=== PATIENT | male | born 1970 | race American Indian/Alaskan Native ===

== ENCOUNTER 2016-10-19 16:02 | Emergency (ER) | payer SELFPAY ==
[2016-10-19] MEDS ORDERED: TRIPLE ANTIBIOTIC TP ONE (17:30)
[2016-10-19] MEDS ORDERED: NACL 0.9% IR ONE (17:30)
[2016-10-19] MEDS ORDERED: BOOSTRIX IM ONE (17:30)
[2016-10-19] MEDS ORDERED: MOTRIN PO ONE (17:30)
--- NOTE | 2016-10-19 18:01 | Emergency Department Report ---
HPI - General Chief Complaint: Wound/Laceration Time Seen by Provider: 10/19/16 17:21 - HPI HPI: 46-year-old male presents today with a laceration to his left thumb. Patient states that he sliced a car Which 3 days ago. Describes pain as 7 out of 10 constant, stabbing pain. His tetanus status is unknown. Denies numbness, weakness, paresthesias. Tried Tylenol with temporary relief. Denies fever, chills, nausea, vomiting, chest pain, shortness of breath, abdominal pain. Positive for history of hypertension and is currently on HCTZ. Patient states that he did not take his blood pressure medication this morning. Denies headache, visual changes, dizziness, confusion, chest pain, palpitations, shortness of breath. ED Past Medical Hx - Past Medical History Hx Hypertension: Yes Hx Psychiatric Treatment: Yes (PTSD) Hx COPD: Yes - Surgical History Past Surgical History?: No - Social History Smoking Status: Current Every Day Smoker Substance Use Type: Alcohol - Medications Home Medications: Home Medications Medication Instructions Recorded Confirmed Last Taken Type Cephalexin [Keflex] 500 mg PO QID #20 cap 10/19/16 Unknown Rx Ibuprofen [Motrin 600 MG tab] 600 mg PO Q8H PRN #20 tablet 10/19/16 Unknown Rx ED Review of Systems ROS: Stated complaint: THUMB LACERATION/BLEEDING Other details as noted in HPI Constitutional: denies: chills, fever, malaise Eyes: denies: eye pain ENT: denies: ear pain, throat pain, congestion Respiratory: denies: cough, shortness of breath, wheezing Cardiovascular: denies: chest pain, palpitations Endocrine: no symptoms reported Gastrointestinal: denies: abdominal pain, nausea, vomiting Neurological: denies: headache, weakness, numbness, paresthesias Physical Exam - Physical Exam Vital Signs: Vital Signs 10/19/16 16:16 Temperature 98.4 F Pulse Rate 90 Respiratory 18 Rate Blood Pressure 170/109 O2 Sat by Pulse 100 Oximetry Physical Exam: GENERAL: The patient is well-developed and well-nourished. Patient is in NAD. HEAD: Normocephalic. Atraumatic. CHEST/LUNGS: Clear to auscultation throughout. HEART/CARDIOVASCULAR: Regular rate and rhythm. No murmurs, rubs or gallops. ABDOMEN: Abdomen is soft, nontender. Bowel sounds normoactive. No guarding or rebound tenderness. LEFT HAND: Full wrist and digit range of motion. 0.75 cm, linear, superficial laceration noted over the radial aspect of left thumb. Normal sensation. 2 point discrimination intact. Peripheral pulses intact. Capillary refill less than 2 seconds. NEURO: Alert and oriented x 3. Normal gait. ED Course Vital Signs 10/19/16 16:16 Temperature 98.4 F Pulse Rate 90 Respiratory 18 Rate Blood Pressure 170/109 O2 Sat by Pulse 100 Oximetry ED Medical Decision Making - Lab Data Vital Signs 10/19/16 10/19/16 16:16 18:13 Temperature 98.4 F Pulse Rate 90 78 Respiratory 18 16 Rate Blood Pressure 170/109 Blood Pressure 173/100 [Left] O2 Sat by Pulse 100 Oximetry Patient has history of hypertension. He states he did not take his medication this morning. Patient is currently on HCTZ and states he will take it once he gets home. - Medical Decision Making 46-year-old male presents today with a superficial laceration to his left thumb. The wound was copiously irrigated, triple antibiotic ointment was applied and wound was stressed. His tetanus status was updated today. Emphasized the importance of compliance with blood pressure medication. Explained to patient that uncontrolled hypertension can lead to stroke, heart attack and even . Patient expressed understanding. Patient is in no acute distress at this time. He will be discharged home and is encouraged to follow up with a primary care provider. He will be sent home on Keflex and ibuprofen and is encouraged to return to the emergency room for any worsening symptoms. Critical care attestation.: If time is entered above; I have spent that time in minutes in the direct care of this critically ill patient, excluding procedure time. ED Disposition Clinical Impression: Laceration of thumb Qualifiers: Encounter type: initial encounter Laterality: left Qualified Code(s): S61.012A - Laceration without foreign body of left thumb without damage to nail, initial encounter Disposition: DISCHARGED TO HOME OR SELFCARE Is pt being admited?: No Does the pt Need Aspirin: No Condition: Stable Instructions: Finger Laceration (ED) Additional Instructions: Follow-up with primary care provider. Return to the emergency department if symptoms worsen. Prescriptions: Cephalexin [Keflex] 500 mg PO QID #20 cap Ibuprofen [Motrin 600 MG tab] 600 mg PO Q8H PRN #20 tablet PRN Reason: Pain Referrals: PAOLO GREENE MD [Primary Care Provider] - 3-5 Days [facility] [Outside] - 3-5 Days Forms: Work/School Release Form(ED) Time of Disposition: 18:15
[2016-10-19 18:14] VITALS: BP 173/100
== END 2016-10-19 18:22 | disposition home or self-care (01) ==
LOC: ED 16:02
DX: S61.012A Laceration without foreign body of left thumb without damage to nail, initial encounter (principal); I10 Essential (primary) hypertension; F43.10 Post-traumatic stress disorder, unspecified; J44.9 Chronic obstructive pulmonary disease, unspecified; F17.200 Nicotine dependence, unspecified, uncomplicated; W45.8XXA Other foreign body or object entering through skin, initial encounter; Y93.89 Activity, other specified; Y99.9 Unspecified external cause status; Y92.89 Other specified places as the place of occurrence of the external cause
CPT/HCPCS: 90471; 90715; A6250

== ENCOUNTER 2019-02-11 14:37 | Emergency (ER) | payer OTHER ==
[2019-02-11 14:47] VITALS: BP 160/96
[2019-02-11] MEDS ORDERED: BENADRYL PO ONE (14:50)
[2019-02-11] MEDS ORDERED: DECADRON IM ONE (14:50)
[2019-02-11] MEDS ORDERED: PEPCID PO ONE (14:50)
--- NOTE | 2019-02-11 14:50 | Event Note ---
ED Screening Note ED Screening Note: pt presents with uppper lip swelling that began three days states worsened this morning denies any new food, new meds, new soaps, new detergents no allergies that he is aware of did not take anything to relieve sx PMHx HTN and seasonal allergies did not take hctz or zyrtec today This initial assessment/diagnostic orders/clinical plan/treatment(s) is/are subject to change based on patients health status, clinical progression and re- assessment by fellow clinical providers in the ED. Further treatment and workup at subsequent clinical providers discretion. Patient/guardian urged not to elope from the ED as their condition may be serious if not clinically assessed and managed. Initial orders include: meds, eval in [facility]
[2019-02-11] MEDS ORDERED: CLEOCIN PO ONE (16:49)
--- NOTE | 2019-02-11 17:20 | Emergency Department Report ---
ED General Adult HPI - General Chief complaint: Medical Clearance Stated complaint: LIP/FACE SWOLLEN Time Seen by Provider: 02/11/19 14:47 Source: patient Mode of arrival: Ambulatory Limitations: No Limitations - History of Present Illness Initial comments: Patient is a 48-year-old [place] male who is presenting with right upper lip swelling for the last 2 days. Patient states he has not had any problems with this tooth, he also has not taken any new medications or foods. He notes that the swelling is extending from the right nostril into the lip. Patient states there is some mild discomfort as 6 out of 10 in severity as an achy tight feeling. There is some pain with palpation. Patient denies any itching sore throat difficulty swallowing shortness of breath this time. - Related Data Previous Rx's Medication Instructions Recorded Last Taken Type Ibuprofen [Motrin 600 MG tab] 600 mg PO Q8H PRN #20 tablet 10/19/16 Unknown Rx cephALEXin [Keflex] 500 mg PO QID #20 cap 10/19/16 Unknown Rx Clindamycin [Clindamycin CAP] 300 mg PO Q8H #21 cap 02/11/19 Unknown Rx Ibuprofen [Motrin 800 MG tab] 800 mg PO Q8HR PRN #10 tablet 02/11/19 Unknown Rx traMADol [Ultram] 50 mg PO Q6HR PRN #12 tablet 02/11/19 Unknown Rx Allergies Allergy/AdvReac Type Severity Reaction Status Date / Time No Known Allergies Allergy Verified 02/11/19 14:38 ED Review of Systems ROS: Stated complaint: LIP/FACE SWOLLEN Other details as noted in HPI Comment: All other systems reviewed and negative ED Past Medical Hx - Past Medical History Hx Hypertension: Yes Hx Psychiatric Treatment: Yes (PTSD) Hx COPD: Yes - Social History Smoking Status: Current Every Day Smoker Substance Use Type: Alcohol, Prescribed - Medications Home Medications: Home Medications Medication Instructions Recorded Confirmed Last Taken Type Ibuprofen [Motrin 600 MG tab] 600 mg PO Q8H PRN #20 tablet 10/19/16 Unknown Rx cephALEXin [Keflex] 500 mg PO QID #20 cap 10/19/16 Unknown Rx Clindamycin [Clindamycin CAP] 300 mg PO Q8H #21 cap 02/11/19 Unknown Rx Ibuprofen [Motrin 800 MG tab] 800 mg PO Q8HR PRN #10 tablet 02/11/19 Unknown Rx traMADol [Ultram] 50 mg PO Q6HR PRN #12 tablet 02/11/19 Unknown Rx ED Physical Exam - General Limitations: No Limitations General appearance: alert, in no apparent distress - Head Head exam: Present: atraumatic, normocephalic - Expanded Head Exam Expanded 1 - There is swelling and erythema to the right upper lip extending from the lip to the entrance of the right nostril. There is some mild edema present as well extending to the left-sided upper lip. The area of maximum swelling and tenderness does have some erythema of the skin and induration - Eye Eye exam: Present: normal appearance, PERRL, EOMI - ENT ENT exam: Present: mucous membranes moist - Expanded ENT Exam Expanded Mouth exam: Present: tongue normal. Absent: muffled voice, tongue elevation Teeth exam: Present: normal inspection - Neck Neck exam: Present: normal inspection - Respiratory Respiratory exam: Present: normal lung sounds bilaterally. Absent: respiratory distress - Cardiovascular Cardiovascular Exam: Present: regular rate, normal rhythm. Absent: systolic murmur, diastolic murmur, rubs, gallop - GI/Abdominal GI/Abdominal exam: Present: soft, normal bowel sounds - Rectal Rectal exam: Present: deferred - Extremities Exam Extremities exam: Present: normal inspection - Back Exam Back exam: Present: normal inspection - Neurological Exam Neurological exam: Present: alert, oriented X3 - Psychiatric Psychiatric exam: Present: normal affect, normal mood - Skin Skin exam: Present: warm, dry, intact, normal color. Absent: rash ED Course Vital Signs 02/11/19 14:44 Temperature 98.5 F Pulse Rate 97 H Respiratory 18 Rate Blood Pressure 160/96 O2 Sat by Pulse 97 Oximetry ED Medical Decision Making - Medical Decision Making Patient was given meds to combat a allergic reaction from triage however his symptoms more in line with folliculitis of his mustache with some localized cellulitis and edema. The patient be started on antibiotics and medications for symptomatic relief and will be discharged home. Critical care attestation.: If time is entered above; I have spent that time in minutes in the direct care of this critically ill patient, excluding procedure time. ED Disposition Clinical Impression: Cellulitis, lip Disposition: DC-01 TO HOME OR SELFCARE Is pt being admited?: No Does the pt Need Aspirin: No Condition: Stable Instructions: Cellulitis (ED) Referrals: NORRIS IRVIN MD [Referring] - 3-5 Days Time of Disposition: 17:20
== END 2019-02-11 17:36 | disposition home or self-care (01) ==
LOC: ED 14:37
DX: K13.0 Diseases of lips (principal); J44.9 Chronic obstructive pulmonary disease, unspecified; F43.10 Post-traumatic stress disorder, unspecified; I10 Essential (primary) hypertension; F17.200 Nicotine dependence, unspecified, uncomplicated
CPT/HCPCS: 96372; 99282; J1100

== ENCOUNTER 2020-03-25 17:37 | Observation (INO) | payer OTHER ==
[2020-03-25] MEDS ORDERED: ASPIRIN 325 MG TAB PO ONE (18:02)
[2020-03-25 18:43] LABS: Basophils % (Auto) 0.6 % (0.0-1.8); Eosinophils # (Auto) 0.1 K/mm3 (0.0-0.4); Eosinophils % (Auto) 1.2 % (0.0-4.3); Hematocrit 44.3 % (35.5-45.6); Hemoglobin 15.3 gm/dl (11.8-15.2); Lymphocytes # (Auto) 2.2 K/mm3 (1.2-5.4); Lymphocytes % (Auto) 30.7 % (13.4-35.0); Mean Corpuscular HGB Conc 34 % (32-34); Mean Corpuscular Volume 87 fl (84-94); Monocytes # (Auto) 0.6 K/mm3 (0.0-0.8); Monocytes % (Auto) 8.6 % (0.0-7.3); Platelet Count 270 K/mm3 (140-440); Red Cell Distribution Width 13.7 % (13.2-15.2)
[2020-03-25 19:08] LABS: Alanine Aminotransferase 29 units/L (7-56); Albumin 3.8 g/dL (3.9-5); BUN/Creatinine Ratio 18; Blood Urea Nitrogen 16 mg/dL (9-20); Calcium 8.8 mg/dL (8.4-10.2); Hemolysis Index 15
--- NOTE | 2020-03-25 19:14 | XRay Report ---
CHEST 2 VIEWS INDICATION / CLINICAL INFORMATION: Chest Pain. COMPARISON: None available. FINDINGS: SUPPORT DEVICES: None. HEART / MEDIASTINUM: No significant abnormality. LUNGS / PLEURA: No significant pulmonary or pleural abnormality. .No pneumothorax. ADDITIONAL FINDINGS: No significant additional findings. IMPRESSION: 1. No acute findings. Signer Name: Franck Uribe MD Signed: 03/25/2020 7:09 PM Workstation Name: [id number]
--- NOTE | 2020-03-25 20:45 | Emergency Department Report ---
ED Chest Pain HPI - General Chief Complaint: Chest Pain Stated Complaint: CP Time Seen by Provider: 03/25/20 18:05 Source: patient Mode of arrival: Ambulatory Limitations: No Limitations - History of Present Illness Initial Comments: 49-year-old male presents to ED with complaint of chest pain. Patient states he has had 3 episodes of this chest pain over the last week. Patient reports intermittent tightness in the substernal chest, with associated nausea, vomiting, and diaphoresis. Patient states first episode happened after he had eaten some spicy chicken wings, so decided to change his diet. However, patient states the other episodes have not been related to food or eating. Patient denies any cough, fever, leg pain or swelling. Patient reports tobacco use since age 15. MD Complaint: chest pain -: week(s) (1) Onset: during rest, after eating Pain Location: substernal Pain Radiation: none Severity: moderate Quality: tightness Consistency: intermittent Improves With: nothing Worsens With: nothing, eating re: nausea, vomting, diaphoresis. denies: dyspnea Other Symptoms: denies: cough, fever - Related Data Previous Rx's Medication Instructions Recorded Last Taken Type Ibuprofen [Motrin 600 MG tab] 600 mg PO Q8H PRN #20 tablet 10/19/16 Unknown Rx cephALEXin [Keflex] 500 mg PO QID #20 cap 10/19/16 Unknown Rx Clindamycin [Clindamycin CAP] 300 mg PO Q8H #21 cap 02/11/19 Unknown Rx Ibuprofen [Motrin 800 MG tab] 800 mg PO Q8HR PRN #10 tablet 02/11/19 Unknown Rx traMADoL [Ultram] 50 mg PO Q6HR PRN #12 tablet 02/11/19 Unknown Rx Allergies Allergy/AdvReac Type Severity Reaction Status Date / Time No Known Allergies Allergy Verified 02/11/19 14:38 Heart Score - HEART Score History: Moderately suspicious EKG: Non-specific Age: 45-65 Risk factors: 1-2 risk factors Troponin: < normal limit HEART Score: 4 ED Review of Systems ROS: Stated complaint: CP Other details as noted in HPI Comment: All other systems reviewed and negative Constitutional: denies: chills, fever Respiratory: denies: cough, shortness of breath Cardiovascular: chest pain Gastrointestinal: nausea, vomiting Musculoskeletal: other (Denies any leg pain or swelling) ED Past Medical Hx - Past Medical History Hx Hypertension: Yes Hx Psychiatric Treatment: Yes (PTSD) Hx COPD: Yes - Social History Smoking Status: Current Every Day Smoker Substance Use Type: Alcohol, Prescribed - Medications Home Medications: Home Medications Medication Instructions Recorded Confirmed Last Taken Type Ibuprofen [Motrin 600 MG tab] 600 mg PO Q8H PRN #20 tablet 10/19/16 Unknown Rx cephALEXin [Keflex] 500 mg PO QID #20 cap 10/19/16 Unknown Rx Clindamycin [Clindamycin CAP] 300 mg PO Q8H #21 cap 02/11/19 Unknown Rx Ibuprofen [Motrin 800 MG tab] 800 mg PO Q8HR PRN #10 tablet 02/11/19 Unknown Rx traMADoL [Ultram] 50 mg PO Q6HR PRN #12 tablet 02/11/19 Unknown Rx ED Physical Exam - General Limitations: No Limitations General appearance: alert, in no apparent distress - Head Head exam: Present: atraumatic, normocephalic - Eye Eye exam: Present: normal appearance, EOMI - ENT ENT exam: Present: mucous membranes moist - Neck Neck exam: Present: normal inspection - Respiratory Respiratory exam: Present: normal lung sounds bilaterally. Absent: respiratory distress - Cardiovascular Cardiovascular Exam: Present: regular rate, normal rhythm - GI/Abdominal GI/Abdominal exam: Present: soft. Absent: distended, tenderness - Extremities Exam Extremities exam: Present: normal inspection. Absent: pedal edema, calf tenderness - Neurological Exam Neurological exam: Present: alert, oriented X3 - Psychiatric Psychiatric exam: Present: normal affect, normal mood - Skin Skin exam: Present: warm, dry, intact, normal color ED Course Vital Signs 03/25/20 03/25/20 03/25/20 17:59 20:48 20:53 Temperature 98.5 F 98.2 F Pulse Rate 102 H 80 Respiratory 18 22 Rate Blood Pressure 150/90 160/98 160/98 Blood Pressure 160/98 [Right] O2 Sat by Pulse 93 99 Oximetry 03/25/20 03/25/20 03/25/20 21:01 21:15 21:31 Temperature Pulse Rate 79 102 H 81 Respiratory 17 21 22 Rate Blood Pressure 160/98 160/98 160/98 Blood Pressure [Right] O2 Sat by Pulse 99 99 99 Oximetry 03/25/20 03/25/20 03/25/20 21:45 22:01 22:11 Temperature Pulse Rate 83 81 86 Respiratory 17 22 17 Rate Blood Pressure 160/98 160/98 160/98 Blood Pressure [Right] O2 Sat by Pulse 99 99 99 Oximetry 03/25/20 03/25/20 22:21 22:31 Temperature Pulse Rate 80 79 Respiratory 22 21 Rate Blood Pressure 160/98 160/98 Blood Pressure [Right] O2 Sat by Pulse 99 99 Oximetry - Consultations Consultation #1: 03/25/20 20:56 Repeat EKG sent to Dr Patrick. No STEMI. T wave changes possibly assoc w/ LVH or cardiomyopathy. ED Medical Decision Making - Lab Data Result diagrams: 03/25/20 18:20 03/25/20 18:20 - EKG Data -: EKG Interpreted by In EKG shows normal: sinus rhythm, axis, intervals, QRS complexes Rate: normal - EKG Data Interpretation: nonspecific ST-T wave dixie - Radiology Data Radiology results: report reviewed, image reviewed - Medical Decision Making 49-year-old male with intermittent chest pain over the last 3 weeks associated with vomiting, and diaphoresis. EKG found to be abnormal, sent to estimate clerk on-call, no STEMI. Troponin is negative, chest x- ray unremarkable. Will admit patient to hospitalist, Dr. Bae, for cardiac work-up. - Differential Diagnosis ACS, GERD, pneumonia Critical care attestation.: If time is entered above; I have spent that time in minutes in the direct care of this critically ill patient, excluding procedure time. ED Disposition Clinical Impression: Acute chest pain Disposition: OP ADMIT IP TO THIS HOSP Is pt being admited?: Yes Condition: Stable Time of Disposition: 21:07
[2020-03-25] MEDS ORDERED: ACETAMINOPHEN 325 MG TAB ONE (21:20)
[2020-03-25] MEDS ORDERED: ONDANSETRON 4 MG/2 ML INJ IV PRN (22:07)
[2020-03-25] MEDS ORDERED: ACETAMINOPHEN 325 MG TAB PO PRN (22:07)
[2020-03-25] MEDS ORDERED: MORPHINE 2 MG/1 ML INJ IV PRN (22:07)
[2020-03-25] MEDS ORDERED: hydrALAZINE 20 MG/1 ML INJ IV PRN (22:07)
[2020-03-25] MEDS ORDERED: MAGNESIUM HYDROXIDE (MOM) ORAL LIQD UDC PO PRN (22:07)
[2020-03-25] MEDS ORDERED: NITROGLYCERIN 0.4 MG TAB SUBL SL PRN (22:07)
--- NOTE | 2020-03-25 22:16 | History and Physical Report ---
History of Present Illness Date of examination: 03/25/20 Date of admission: 03/25/20 21:55 Chief complaint: Chest pain History of present illness: 49-year-old male with significant history of hypertension and current daily smoker since age 15 presented to the emergency room today complaining of chest pain which has been ongoing for the past 1 week. Chest pain has been intermittent tightness in the substernal area. He has had associated nausea and vomiting and diaphoresis. He denies any fever or or chills, no headache or dizziness. Chest pain is nonradiating and lasted a few minutes on each occasion. No no relieving or exacerbating factor. Work-up so far in the emergency room including chest x-ray, EKG and troponin has been unremarkable. Past History Past Medical History: hypertension, other (PTSD) Past Surgical History: No surgical history Social history: smoking (Current daily smoker), alcohol abuse (Drinks 3-4 beers daily) Family history: CAD (Grandmother of myocardial infarction) Medications and Allergies Allergies Allergy/AdvReac Type Severity Reaction Status Date / Time No Known Allergies Allergy Verified 02/11/19 14:38 Home Medications Medication Instructions Recorded Confirmed Last Taken Type Ibuprofen [Motrin 600 MG tab] 600 mg PO Q8H PRN #20 tablet 10/19/16 Unknown Rx cephALEXin [Keflex] 500 mg PO QID #20 cap 10/19/16 Unknown Rx Clindamycin [Clindamycin CAP] 300 mg PO Q8H #21 cap 02/11/19 Unknown Rx Ibuprofen [Motrin 800 MG tab] 800 mg PO Q8HR PRN #10 tablet 02/11/19 Unknown Rx traMADoL [Ultram] 50 mg PO Q6HR PRN #12 tablet 02/11/19 Unknown Rx Review of Systems Constitutional: no fever, no chills Ears, nose, mouth and throat: no nasal congestion, no sore throat Cardiovascular: chest pain, shortness of breath, no palpitations Respiratory: cough, no wheezing Gastrointestinal: nausea, vomiting, no abdominal pain, no diarrhea Genitourinary Male: no dysuria, no hematuria, no flank pain Musculoskeletal: no neck pain, no low back pain Integumentary: no rash, no pruritis Neurological: no headaches, no confusion Psychiatric: no anxiety, no depression Exam - Constitutional Vitals: Temp Pulse Resp BP Pulse Ox 98.2 F 80 22 160/98 100 03/25/20 20:53 03/25/20 20:53 03/25/20 20:53 03/25/20 20:53 03/25/20 20:53 General appearance: Present: no acute distress, well-nourished - EENT Eyes: Present: PERRL, EOM intact. Absent: scleral icterus ENT: hearing intact, clear oral mucosa, dentition normal - Neck Neck: Present: supple, normal ROM - Respiratory Respiratory effort: normal Respiratory: bilateral: CTA - Cardiovascular Rhythm: regular Heart Sounds: Present: S1 & S2. Absent: gallop, systolic murmur, diastolic murmur, rub - Extremities Extremities: no ischemia, pulses intact, pulses symmetrical, No edema, Full ROM Peripheral Pulses: within normal limits - Abdominal General gastrointestinal: Present: soft, non-tender, non-distended, normal bowel sounds. Absent: mass - Integumentary Integumentary: Present: clear, warm, dry - Musculoskeletal Musculoskeletal: strength equal bilaterally - Psychiatric Psychiatric: appropriate mood/affect, intact judgment & insight, memory intact, cooperative - Neurologic Neurologic: CNII-XII intact, no focal deficits, moves all extremities HEART Score - HEART Score Troponin: Troponin T < 0.010 ng/mL (0.00-0.029) 03/25/20 21:12 Results - Labs CBC & Chem 7: 03/25/20 18:20 03/25/20 18:20 Labs: Abnormal lab results 03/25/20 03/25/20 Range/Units 18:20 18:20 RBC 5.10 H (3.65-5.03) M/mm3 Hgb 15.3 H (11.8-15.2) gm/dl [place] % (Auto) 8.6 H (0.0-7.3) % Glucose 112 H (75-100) mg/dL Albumin 3.8 L (3.9-5) g/dL Assessment and Plan - Patient Problems (1) Acute chest pain Current Visit: Yes Status: Acute Plan to address problem: Patient admitted and placed on telemetry. We will check serial cardiac enzymes. Patient started on daily aspirin, sublingual nitroglycerin and IV morphine as needed for chest pain. Patient will be scheduled for stress test. (2) Hypertension Current Visit: Yes Status: Acute Plan to address problem: We will resume routine home medications once reconciled. Will monitor blood pressure closely. (3) DVT prophylaxis Current Visit: Yes Status: Acute Plan to address problem: Patient placed on subcutaneous Lovenox. (4) Full code status Current Visit: Yes Status: Acute
[2020-03-25] MEDS ORDERED: ASPIRIN 325 MG TAB ONE (22:18)
[2020-03-26 04:32] LABS: Chol/HDL Ratio 4.01 %
[2020-03-26 05:50] LABS: Basophils % (Auto) 0.6 % (0.0-1.8); Eosinophils # (Auto) 0.1 K/mm3 (0.0-0.4); Eosinophils % (Auto) 1.5 % (0.0-4.3); Hemoglobin 15.1 gm/dl (11.8-15.2); Lymphocytes # (Auto) 2.4 K/mm3 (1.2-5.4); Lymphocytes % (Auto) 35.5 % (13.4-35.0); Monocytes # (Auto) 0.6 K/mm3 (0.0-0.8); Monocytes % (Auto) 9.3 % (0.0-7.3)
[2020-03-26 06:04] LABS: INR 0.88 (0.87-1.13)
[2020-03-26 06:08] LABS: Hematocrit 43.3 % (35.5-45.6); Mean Corpuscular HGB Conc 35 % (32-34); Mean Corpuscular Volume 88 fl (84-94); Platelet Count 265 K/mm3 (140-440); Red Blood Count 4.95 M/mm3 (3.65-5.03); Red Cell Distribution Width 14.1 % (13.2-15.2)
[2020-03-26 06:13] LABS: Blood Urea Nitrogen 13 mg/dL (9-20); Hemolysis Index 9
[2020-03-26 06:26] LABS: BUN/Creatinine Ratio 19
[2020-03-26] MEDS ORDERED: REGADENOSON 0.4 MG/5 ML INJ IV ONE ×2 (07:16→08:03)
--- NOTE | 2020-03-26 09:51 | Consultation ---
History of Present Illness Consult date: 03/26/20 Consult reason: chest pain, other (Abnormal EKG) History of present illness: The patient is a 49-year-old man with a history of hypertension for which he [facility] up [facility], and takes hydrochlorothiazide. He denies any prior cardiac history. He presented to the hospital with intermittent substernal chest pain ongoing for several days, poorly characterized, not clearly exertional. He was evaluated in the emergency room and admitted for rule out protocol. This morning, he was ordered for an exercise thallium stress test by the medical service. Prior to the requested stress test, we reviewed the patient's EKGs. Serial EKGs show deep T wave inversions across the precordium. The patient has no prior ECGs in the hospital records for comparison. He is unaware of previous history of an abnormal ECG. Past History Past Medical History: hypertension, other (PTSD) Past Surgical History: No surgical history Social history: smoking (Current daily smoker), alcohol abuse (Drinks 3-4 beers daily) Family history: CAD (Grandmother of myocardial infarction) Medications and Allergies Allergies Allergy/AdvReac Type Severity Reaction Status Date / Time No Known Allergies Allergy Verified 02/11/19 14:38 Home Medications Medication Instructions Recorded Confirmed Last Taken Type Ibuprofen [Motrin 600 MG tab] 600 mg PO Q8H PRN #20 tablet 10/19/16 03/26/20 Unknown Rx cephALEXin [Keflex] 500 mg PO QID #20 cap 10/19/16 03/26/20 Unknown Rx Clindamycin [Clindamycin CAP] 300 mg PO Q8H #21 cap 02/11/19 03/26/20 Unknown Rx Ibuprofen [Motrin 800 MG tab] 800 mg PO Q8HR PRN #10 tablet 02/11/19 03/26/20 Unknown Rx traMADoL [Ultram] 50 mg PO Q6HR PRN #12 tablet 02/11/19 03/26/20 Unknown Rx Active Meds: Active Medications Acetaminophen (Tylenol) 650 mg PO Q4H PRN PRN Reason: Pain MILD(1-3)/Fever >100.5/FRIAS Aspirin (Ecotrin) 325 mg PO QDAY JESSIE Enoxaparin Sodium (Enoxaparin) 40 mg SUB-Q QDAY@2200 JESSIE Hydralazine HCl (Apresoline) 10 mg IV Q6HR PRN PRN Reason: FOR SBP > target Magnesium Hydroxide (Milk Of Magnesia) 30 ml PO Q4H PRN PRN Reason: Constipation Morphine Sulfate (Morphine) 2 mg IV Q5MIN PRN PRN Reason: Chest Pain unrelieved by NTG Nitroglycerin (Nitrostat) 0.4 mg SL Q5M PRN PRN Reason: Chest Pain Ondansetron HCl (Zofran) 4 mg IV Q8H PRN PRN Reason: Nausea And Vomiting Sodium Chloride (Sodium Chloride Flush Syringe 10 Ml) 10 ml IV BID JESSIE Sodium Chloride (Sodium Chloride Flush Syringe 10 Ml) 10 ml IV PRN PRN PRN Reason: LINE FLUSH Review of Systems Cardiovascular: chest pain, no orthopnea, no palpitations, no rapid/irregular heart beat, no edema, no syncope, no lightheadedness, no shortness of breath Physical Examination Vital Signs Temp Pulse Resp BP Pulse Ox 98.5 F 102 H 18 150/90 93 03/25/20 17:59 03/25/20 17:59 03/25/20 17:59 03/25/20 17:59 03/25/20 17:59 General appearance: no acute distress HEENT: Positive: PERRL Neck: Positive: neck supple Cardiac: Positive: Reg Rate and Rhythm Lungs: Positive: clear to auscultation Neuro: Positive: Grossly Intact Abdomen: Positive: Soft Male genitourinary: Positive: deferred Skin: Positive: Clear Extremities: Absent: edema Results 03/26/20 05:08 03/26/20 05:08 Cardiac Enzymes 03/25/20 Range/Units 18:20 AST 25 (5-40) units/L Coagulation 03/26/20 Range/Units 05:08 PT 12.0 L (12.2-14.9) Sec. INR 0.88 (0.87-1.13) Lipids 03/25/20 Range/Units Unknown Triglycerides 237 H (2-149) mg/dL Cholesterol 213 H (50-199) mg/dL HDL Cholesterol 53 (40-59) mg/dL Cholesterol/HDL Ratio 4.01 % CBC 03/25/20 03/26/20 Range/Units 18:20 05:08 WBC 7.2 6.8 (4.5-11.0) K/mm3 RBC 5.10 H 4.95 (3.65-5.03) M/mm3 Hgb 15.3 H 15.1 (11.8-15.2) gm/dl Hct 44.3 43.3 (35.5-45.6) % Plt Count 270 265 (140-440) K/mm3 Lymph # 2.2 2.4 (1.2-5.4) K/mm3 [place] # 0.6 0.6 (0.0-0.8) K/mm3 Eos # 0.1 0.1 (0.0-0.4) K/mm3 Baso # 0.0 0.0 (0.0-0.1) K/mm3 Comprehensive Metabolic Panel 03/25/20 03/26/20 Range/Units 18:20 05:08 Sodium 138 137 (137-145) mmol/L Potassium 4.1 3.7 (3.6-5.0) mmol/L Chloride 101.0 97.4 L (98-107) mmol/L Carbon Dioxide 22 25 (22-30) mmol/L BUN 16 13 (9-20) mg/dL Creatinine 0.9 0.7 L (0.8-1.3) mg/dL Glucose 112 H 96 (75-100) mg/dL Calcium 8.8 9.0 (8.4-10.2) mg/dL AST 25 (5-40) units/L ALT 29 (7-56) units/L Alkaline Phosphatase 98 (35-129) units/L Total Protein 6.5 (6.3-8.2) g/dL Albumin 3.8 L (3.9-5) g/dL EKG interpretations - Telemetry EKG Rhythm: Sinus Rhythm (With deep anterior lateral T wave inversions) Assessment and Plan - Patient Problems (1) Abnormal ECG Current Visit: Yes Status: Acute Plan to address problem: The patient presented with chest pain accompanied by deep anterior wall T wave inversions, of uncertain etiology. EKG changes may be due to LVH from chronic hypertension, but patient has no old ECGs for comparison. We will request the patient's old ECGs from the [facility] for comparison, and if this changes are new the differential diagnosis will include acute anterior wall ischemia. In that scenario, patient is not a candidate for stress testing and will instead be recommended for diagnostic coronary angiography. (2) Chest pain Current Visit: Yes Status: Acute Plan to address problem: The patient presented with chest pain accompanied by deep anterior wall T wave inversions, of uncertain etiology. EKG changes may be due to LVH from chronic hypertension, but patient has no old ECGs for comparison. [facility], and if this changes are new the differential diagnosis will include acute anterior wall ischemia. In that scenario, patient is not a candidate for stress testing and will instead be recommended for diagnostic coronary angiography. (3) Uncontrolled hypertension Current Visit: Yes Status: Acute Plan to address problem: Patient's blood pressure on presentation was 160 systolic. We will add losartan 50 mg to blood pressure management.
[2020-03-26] MEDS ORDERED: hydroCHLOROthiazide 25 MG TAB PO SCH (10:00)
[2020-03-26] MEDS ORDERED: ASPIRIN EC 325 MG TAB PO SCH (10:00)
[2020-03-26] MEDS ORDERED: LOSARTAN 50 MG TAB PO SCH (10:00)
[2020-03-26] MEDS ORDERED: SODIUM CHLORIDE 0.9% 500 ML 500 ML IV SCH (10:00)
[2020-03-26] MEDS ORDERED: SODIUM CHLORIDE 0.9% 500 ML 500 ML ONE (10:57)
[2020-03-26] MEDS ORDERED: LIDOCAINE (2%) 20 MG/1 ML VIAL 20 ML MDV INFILTRATI ONE (12:05)
[2020-03-26] MEDS ORDERED: HEPARIN/NS 5000 UNIT/500ML 1,000 ML IR ONE (12:05)
[2020-03-26] MEDS: MIDAZOLAM 2 MG/2 ML INJ ONE ×2 (12:25→12:28)
[2020-03-26] MEDS: VERAPAMIL 5 MG/2 ML INJ ONE ×2 (12:25→12:33)
[2020-03-26] MEDS: HEPARIN 10,000 UNITS/10 ML VIAL ONE ×2 (12:25→12:33)
[2020-03-26] MEDS: fentaNYL 100 MCG/2 ML INJ ONE ×2 (12:25→12:28)
[2020-03-26] MEDS: NITROGLYCERIN SYRINGE 3 ML ONE ×2 (12:26→12:33)
--- NOTE | 2020-03-26 13:39 | Event Note ---
Date: 03/26/20 Cardiac catheterization was completed via the right radial approach. No complications. We found a heavily calcified proximal LAD, with a greater than 99% stenosis of the mid LAD, consistent with a deep anterolateral T wave inversions found on ECG. There was also moderately severe disease of the mid to distal circumflex and proximal to mid right coronary arteries. Left ventricular ejection fraction was approximately 40%. Based on his anatomy, patient is recommended for multivessel revascularization with coronary artery bypass.
[2020-03-26] MEDS ORDERED: SODIUM CHLORIDE 0.9% 1000 ML 1,000 ML IV SCH (13:45)
[2020-03-26] MEDS ORDERED: METOPROLOL TARTRATE 25 MG TAB PO SCH (14:00)
[2020-03-26] MEDS ORDERED: HEPARIN 10,000 UNITS/10 ML VIAL IV ONE (14:00)
[2020-03-26] MEDS ORDERED: NITROGLYCERIN 2% OINT 1 GM TP SCH (14:00)
--- NOTE | 2020-03-26 14:23 | Cardiac Catherization Report ---
CARDIAC CATHETERIZATION REPORT REASON FOR PROCEDURE: Chest pain and abnormal ECG. PROCEDURES: 1. Left heart catheterization. 2. Selective left and right coronary angiography. 3. Left ventricular angiography. SEDATION TIME START: 12:28. SEDATION TIME END: 12:48. DESCRIPTION OF PROCEDURE: The patient was prepped and draped in a sterile fashion after informed consent. The right radial cath site was prepped and draped in a sterile fashion after a negative Dominik's test. The right radial artery was entered using Seldinger technique followed by placement of a 6-Mongolian hydrophilic sheath. Routine radial cocktail was administered via the sheath. Selective left and right coronary angiography was performed using #3.5 left [place] and #4 right [place]. The pigtail catheter was used for left ventricular angiography. The catheters were then removed, sheath removed, and hemostasis achieved using a TR band. The patient was returned to the postprocedure unit in stable condition. There were no complications. FINDINGS: HEMODYNAMICS: Left ventricular end diastolic pressure was 13, following coronary angiography ____. Ascending aortic pressure of 139/88. There was no significant pressure gradient on pullback across the aortic valve. CORONARY ANGIOGRAPHY: There was severe calcification of the left coronary arteries including the distal left main, proximal to mid LAD and proximal to mid circumflex. The left main contained mild irregularities. The left anterior descending artery contained a long segment of severe disease in its proximal segment associated with heavy calcification. There was a long 80% stenosis, which ____ in a greater than 99% stenosis of the mid LAD. The circumflex artery also contained calcification in its proximal to mid segment, followed by a long irregular 70-80% stenosis of its mid to distal segment. The right coronary artery was a small caliber, but dominant vessel. This vessel was also heavily calcified and contained a long, 70-80% stenosis of its proximal to mid segment. The left ventricular systolic function was mildly to moderately impaired with ejection fraction approximately 40%. CONCLUSION: 1. Severe 3-vessel disease including a subtotal occlusion of the LAD in its mid segment. The LAD is heavily calcified and would not be an optimal target for percutaneous intervention in the absence of rotational atherectomy. 2. Multivessel coronary artery disease and ischemic left ventricular dysfunction. RECOMMENDATION: Coronary artery bypass surgery will be the optimal revascularization strategy. JOB# [id number] CA/NTS
--- NOTE | 2020-03-26 15:06 | Discharge Summary ---
Providers - Providers Date of Admission: 03/25/20 21:55 Date of discharge: 03/26/20 Attending physician: RIMA MODI 03/25/20 Consult to Cardiac Rehabilitation [CONS] Routine Reason For Exam: Phase I 03/25/20 22:08 Consult to Cardiology [CONS] Routine Consulting Provider: SAM BRANTLEY Reason For Exam: CHEST PAIN 03/26/20 13:33 Consult to Cardiac Rehabilitation [CONS] Routine Reason For Exam: Cardiac Rehab Evaluation Primary care physician: REVENUE MANAGER Hospitalization Reason for admission: chest pain Condition: Stable Hospital course: This is a 49-year-old male presented to the hospital with complaints of chest pain. Patient was admitted to the hospital, cardiology was consulted, was monitored with the serial EKG and troponin. Serial EKGs show deep T wave inversions across the precordium. Cardiology proceeded with the left heart catheterization. LHC found a heavily calcified proximal LAD, with a greater than 99% stenosis of the mid LAD, consistent with a deep anterolateral T wave inversions found on ECG. There was also moderately severe disease of the mid to distal circumflex and proximal to mid right coronary arteries. Left ventricular ejection fraction was approximately 40%. Based on his anatomy, patient is recommended for multivessel revascularization with coronary artery bypass [facility]. Patient was then transferred to [place] for higher level of care in stable condition. Discharge diagnosis: Acute chest pain-angina pectoris, due to coronary artery disease -Patient will be transferred to [place] for higher level of care Hyperlipidemia, continue statin Uncontrolled hypertension, stable on d/c Acute new onset systolic CHF, appears compensated PTSD, outpt f/u Disposition: DC/TX-[facility] Time spent for discharge: 34 minutes Core Measure Documentation - Palliative Care Palliative Care/ Comfort Measures: Not Applicable - Core Measures Any of the following diagnoses?: history only Exam - Physical Exam Narrative exam: GENERAL: well-developed and well-nourished male lying on bed appeared to be in no discomfort. HEENT: Normocephalic. Atraumatic. No conjunctival congestion or icterus. Patient has moist mucous membranes. NECK: Supple. Trachea midline. CHEST/LUNGS: Clear to auscultated bilaterally, breathing nonlabored. No wheezes crackles or rhonchi. HEART/CARDIOVASCULAR: Regular in rate and rhythm. S1 and S2 positive. ABDOMEN: Abdomen is soft, nontender. Patient has normal bowel sounds. SKIN: There is no rash. Warm and dry. NEURO: No focal motor deficit. Follows command. MUSCULOSKELETAL: No joint effusion or tenderness. EXTRIMITY: No edema, no cyanosis or clubbing. PSYCH: Cooperative. - Constitutional Vitals: Temp Pulse Resp BP Pulse Ox 96.9 F L 70 16 158/98 94 03/26/20 03:58 03/26/20 10:00 03/26/20 03:58 03/26/20 03:58 03/26/20 03:58 Plan Activity: other (Bedrest) Weight Bearing Status: Non-Weight Bearing Diet: low fat, low salt Follow up with: PRIMARY CARE, [Primary Care Provider] - 3-5 Days
[2020-03-26] MEDS ORDERED: HEPARIN/ 0.45% NACL DRIP 25,000 UNIT/500 ML BAG IV SCH (15:35)
[2020-03-26 16:26] LABS: INR 0.91 (0.87-1.13)
[2020-03-26 16:27] LABS: Partial Thromboplastin Time 27.4 Sec. (24.2-36.6)
[2020-03-26 16:52] VITALS: BP 125/77
[2020-03-26] MEDS ORDERED: ENOXAPARIN 40 MG/0.4 ML INJ SUB-Q SCH (22:00)
== END 2020-03-26 18:58 | disposition other institution (70) ==
LOC: ED 17:37 → 4A 21:55
PROVIDERS: ADMIT Internal Medicine; ATTEND Internal Medicine
DX: R07.89 Other chest pain (principal); R94.31 Abnormal electrocardiogram [ECG] [EKG]; R11.2 Nausea with vomiting, unspecified; I25.119 Atherosclerotic heart disease of native coronary artery with unspecified angina pectoris; I11.0 Hypertensive heart disease with heart failure; I50.21 Acute systolic (congestive) heart failure; F43.10 Post-traumatic stress disorder, unspecified; E78.5 Hyperlipidemia, unspecified; J44.9 Chronic obstructive pulmonary disease, unspecified; F17.200 Nicotine dependence, unspecified, uncomplicated; Z79.899 Other long term (current) drug therapy
CPT/HCPCS: 36415; 71046; 80048; 80053; 80061; 84484; 85014; 85018; 85025; 85049; 85610; 85730; 93005; 93306; 93458; 96360; 96361; 99285; C1894; G0378; J1644; J2250; J3010; J7040; J2785; Q9967

== ENCOUNTER 2021-08-12 01:45 | Emergency (ER) | payer OTHER ==
[2021-08-12] MEDS ORDERED: hydrALAZINE 20 MG/1 ML INJ IV ONE ×2 (02:22→04:52)
--- NOTE | 2021-08-12 02:26 | Emergency Department Report ---
ED ENT HPI - General Chief complaint: Nosebleed Stated complaint: EPISTAXIS Time Seen by Provider: 08/12/21 02:13 Source: patient Mode of arrival: Ambulatory Limitations: No Limitations - History of Present Illness Initial comments: Patient is 50 years old male with history of hypertension. Patient presented to the ER complaining of epistaxis that started just prior to coming to the ER. Patient is bleeding from both nose however the one on the left side is more bright red blood with clots. Patient denied any recent injury. He also denied any fever or chills. Patient found to have a blood pressure of 183/113. Patient denied any headache, focal weakness numbness or tingling sensation. No chest pain or shortness of breath. MD complaint: epistaxis -: Sudden Location: nose Severity: moderate - Related Data Home Medications Medication Instructions Recorded Confirmed Last Taken Aspirin EC [Ecotrin] 81 mg PO QDAY 08/01/20 07/28/20 Cetirizine HCl [Cetirizine 5mg tab] 10 mg PO DAILY PRN 08/01/20 08/01/20 07/27/20 Cholecalciferol (Vitamin D3) 25 mcg PO DAILY 08/01/20 08/01/20 07/28/20 [Vitamin D3] Losartan [Cozaar] 5 mg PO QDAY 08/01/20 08/01/20 07/28/20 Metoprolol [Lopressor TAB] 50 mg PO BID 08/01/20 08/01/20 07/28/20 Previous Rx's Medication Instructions Recorded Last Taken Type AtorvaSTATin [Lipitor] 40 mg PO QHS tablet 03/26/20 07/27/20 Rx Allergies Allergy/AdvReac Type Severity Reaction Status Date / Time No Known Allergies Allergy Verified 02/11/19 14:38 ED Dental HPI - General Chief complaint: Nosebleed Stated complaint: EPISTAXIS Time Seen by Provider: 08/12/21 02:13 Source: patient Mode of arrival: Ambulatory Limitations: No Limitations - Related Data Home Medications Medication Instructions Recorded Confirmed Last Taken Aspirin EC [Ecotrin] 81 mg PO QDAY 08/01/20 07/28/20 Cetirizine HCl [Cetirizine 5mg tab] 10 mg PO DAILY PRN 08/01/20 08/01/20 07/27/20 Cholecalciferol (Vitamin D3) 25 mcg PO DAILY 08/01/20 08/01/2007/28/20 [Vitamin D3] Losartan [Cozaar] 5 mg PO QDAY 08/01/20 08/01/20 07/28/20 Metoprolol [Lopressor TAB] 50 mg PO BID 08/01/20 08/01/20 07/28/20 Previous Rx's Medication Instructions Recorded Last Taken Type AtorvaSTATin [Lipitor] 40 mg PO QHS tablet 03/26/20 07/27/20 Rx Allergies Allergy/AdvReac Type Severity Reaction Status Date / Time No Known Allergies Allergy Verified 02/11/19 14:38 ED Review of Systems ROS: Stated complaint: EPISTAXIS Other details as noted in HPI Comment: All other systems reviewed and negative Constitutional: denies: chills, fever ENT: epistaxis Respiratory: denies: cough, shortness of breath, SOB with exertion, SOB at rest Cardiovascular: denies: chest pain, palpitations Gastrointestinal: denies: abdominal pain, nausea ED Past Medical Hx - Past Medical History Hx Hypertension: Yes Hx Congestive Heart Failure: No Hx Diabetes: No Hx Psychiatric Treatment: Yes (PTSD) Hx Asthma: No Hx COPD: Yes - Surgical History Past Surgical History?: No - Social History Smoking Status: Current Every Day Smoker - Medications Home Medications: Home Medications Medication Instructions Recorded Confirmed Last Taken Type AtorvaSTATin [Lipitor] 40 mg PO QHS tablet 03/26/20 08/01/20 07/27/20 Rx Aspirin EC [Ecotrin] 81 mg PO QDAY 08/01/20 07/28/20 History Cetirizine HCl [Cetirizine 5mg tab] 10 mg PO DAILY PRN 08/01/20 08/01/20 07/27/20 History Cholecalciferol (Vitamin D3) 25 mcg PO DAILY 08/01/20 08/01/20 07/28/20 History [Vitamin D3] Losartan [Cozaar] 5 mg PO QDAY 08/01/20 08/01/20 07/28/20 History Metoprolol [Lopressor TAB] 50 mg PO BID 08/01/20 08/01/20 07/28/20 History ED Physical Exam - General Limitations: No Limitations General appearance: alert, anxious - Head Head exam: Present: atraumatic, normocephalic, normal inspection - ENT ENT exam: Present: other (Epistaxis with bright red blood active bleeding on bot h nostrils.) - Respiratory Respiratory exam: Present: normal lung sounds bilaterally - Cardiovascular Cardiovascular Exam: Present: regular rate, normal rhythm, normal heart sounds - GI/Abdominal GI/Abdominal exam: Present: soft. Absent: distended, tenderness, guarding, rebound, rigid - Extremities Exam Extremities exam: Present: normal inspection, full ROM, normal capillary refill. Absent: tenderness - Back Exam Back exam: Present: normal inspection, full ROM. Absent: CVA tenderness (R), CVA tenderness (L) - Neurological Exam Neurological exam: Present: alert, oriented X3, CN II-XII intact - Psychiatric Psychiatric exam: Present: normal mood - Skin Skin exam: Present: warm, intact, normal color ED Course Vital Signs 08/12/21 08/12/21 08/12/21 02:01 02:30 02:36 Temperature 97.6 F Pulse Rate 87 91 H 91 H Respiratory 16 16 Rate Blood Pressure 201/151 Blood Pressure 189/113 201/151 [Left] O2 Sat by Pulse 100 100 Oximetry 08/12/21 08/12/21 08/12/21 02:45 03:15 04:00 Temperature Pulse Rate 89 93 H 83 Respiratory 14 13 20 Rate Blood Pressure Blood Pressure 183/102 170/102 180/95 [Left] O2 Sat by Pulse 99 98 98 Oximetry 08/12/21 08/12/21 08/12/21 04:30 04:58 05:15 Temperature Pulse Rate 86 85 92 H Respiratory 13 12 Rate Blood Pressure 180/96 Blood Pressure 161/91 160/86 [Left] O2 Sat by Pulse 99 98 Oximetry ED Medical Decision Making - Lab Data Result diagrams: 08/12/21 02:51 08/12/21 02:51 - Medical Decision Making Patient is 50 years old male with history of hypertension. Patient presented to the ER complaining of epistaxis that started just prior to coming to the ER. Patient is bleeding from both nose however the one on the left side is more bright red blood with clots. Patient denied any recent injury. He also denied any fever or chills. Patient found to have a blood pressure of 183/113. Pat ient denied any headache, focal weakness numbness or tingling sensation. No chest pain or shortness of breath. Rhinocort applied to the left and right nostril. After 1 hour the right nostril Rhinocort removed and there is no bleeding. Left Rhinocort kept in place. Blood pressure improved with 20 mg of IV hydralazine. Patient advised to follow-up with his primary doctor in the next 2 to 3 days or to return to the ER for the removal of the nasal packing. Critical care attestation.: If time is entered above; I have spent that time in minutes in the direct care of this critically ill patient, excluding procedure time. ED Disposition Clinical Impression: Acute anterior epistaxis, Malignant hypertension Disposition: 01 HOME / SELF CARE / HOMELESS Is pt being admited?: No Condition: Stable Instructions: Hypertension (ED), Hypertension, Adult, Nosebleed, Adult Referrals: [facility] [Primary Care Provider] - 3-5 Days
[2021-08-12 03:10] LABS: Basophils # (Auto) 0.1 K/mm3 (0.0-0.1); Basophils % (Auto) 0.8 % (0.0-1.8); Eosinophils # (Auto) 0.1 K/mm3 (0.0-0.4); Eosinophils % (Auto) 0.9 % (0.0-4.3); Hematocrit 41.2 % (35.5-45.6); Hemoglobin 13.9 gm/dl (11.8-15.2); Lymphocytes # (Auto) 3.2 K/mm3 (1.2-5.4); Lymphocytes % (Auto) 33.6 % (13.4-35.0); Mean Corpuscular HGB Conc 34 % (32-34); Mean Corpuscular Volume 91 fl (84-94); Monocytes # (Auto) 0.9 K/mm3 (0.0-0.8); Monocytes % (Auto) 9.9 % (0.0-7.3); Platelet Count 307 K/mm3 (140-440); Red Blood Count 4.52 M/mm3 (3.65-5.03); Red Cell Distribution Width 14.6 % (13.2-15.2)
[2021-08-12 03:23] LABS: INR 0.87 (0.87-1.13)
[2021-08-12 03:24] LABS: Partial Thromboplastin Time 27.6 Sec. (24.2-36.6)
[2021-08-12] MEDS ORDERED: MORPHINE 4 MG/1 ML INJ IV ONE (03:27)
[2021-08-12] MEDS ORDERED: ONDANSETRON 4 MG/2 ML INJ IV ONE (03:27)
[2021-08-12] MEDS ORDERED: MORPHINE 4 MG/1 ML INJ ONE (03:28)
[2021-08-12 03:31] LABS: Alanine Aminotransferase 25 units/L (7-56); Albumin 3.4 g/dL (3.9-5); Blood Urea Nitrogen 12 mg/dL (9-20); Calcium 9.1 mg/dL (8.4-10.2); Hemolysis Index 2
[2021-08-12 03:47] LABS: BUN/Creatinine Ratio 20
[2021-08-12 06:14] VITALS: BP 154/92
== END 2021-08-12 06:52 | disposition home or self-care (01) ==
LOC: ED 01:45
DX: R04.0 Epistaxis (principal); I10 Essential (primary) hypertension; J44.9 Chronic obstructive pulmonary disease, unspecified; F17.200 Nicotine dependence, unspecified, uncomplicated; Z79.82 Long term (current) use of aspirin; Z79.899 Other long term (current) drug therapy
CPT/HCPCS: 30901; 36415; 80053; 85025; 85610; 85730; 96374; 96375; 96376; 99283; J0360; J2270; J2405

== ENCOUNTER 2021-08-12 08:58 | Emergency (ER) | payer OTHER ==
--- NOTE | 2021-08-12 09:13 | Emergency Department Report ---
ED ENT HPI - General Chief complaint: Nosebleed Stated complaint: NOSE BLEED Time Seen by Provider: 08/12/21 09:06 Source: patient Mode of arrival: Ambulatory Limitations: No Limitations - History of Present Illness Initial comments: 50-year-old -[place] male with a past medical history of hypertension presents to the ER today with complaints of nosebleeds. Patient was actually discharged this morning from the ER after being seen for similar. According to the providers note, patient was weaned from both both nostrils, he had a Rhino Rocket placed in both nostrils but after an hour, the right one was removed, and the left was kept in place. Patient blood pressure was high at the time, 183/118 and during his visit he did receive 20 mg IV hydralazine after which his blood pressure did improve. Patient was instructed to follow-up with PCP in 2 to 3 days or return to the ER 2 to 3 days to have the packing removed. Patient reports that the bleeding did stop when he initially left the ER, but when he got home he started to bleed again from his right nostril. He does admit that he did blow his nose when he got home. He states that bleeding is bright red. He reports no additional symptoms at this time. He states that his never had nosebleed before in the past. He is on baby aspirin 81 mg a day, no other anticoagulants or antiplatelet therapy. He denies any pain disorders. He does admit that he drinks alcohol almost every day. MD complaint: epistaxis - Related Data Home Medications Medication Instructions Recorded Confirmed Last Taken Aspirin EC [Ecotrin] 81 mg PO QDAY 08/01/20 07/28/20 Cetirizine HCl [Cetirizine 5mg tab] 10 mg PO DAILY PRN 08/01/20 08/01/20 07/27/20 Cholecalciferol (Vitamin D3) 25 mcg PO DAILY 08/01/20 08/01/20 07/28/20 [Vitamin D3] Losartan [Cozaar] 5 mg PO QDAY 08/01/20 08/01/20 07/28/20 Metoprolol [Lopressor TAB] 50 mg PO BID 08/01/20 08/01/20 07/28/20 Previous Rx's Medication Instructions Recorded Last Taken Type AtorvaSTATin [Lipitor] 40 mg PO QHS tablet 03/26/20 07/27/20 Rx Allergies Allergy/AdvReac Type Severity Reaction Status Date / Time No Known Allergies Allergy Verified 02/11/19 14:38 ED Dental HPI - General Chief complaint: Nosebleed Stated complaint: NOSE BLEED Time Seen by Provider: 08/12/21 09:06 Source: patient Mode of arrival: Ambulatory Limitations: No Limitations - Related Data Home Medications Medication Instructions Recorded Confirmed Last Taken Aspirin EC [Ecotrin] 81 mg PO QDAY 08/01/20 07/28/20 Cetirizine HCl [Cetirizine 5mg tab] 10 mg PO DAILY PRN 08/01/20 08/01/20 0 Cholecalciferol (Vitamin D3) 25 mcg PO DAILY 08/01/20 08/01/20 07/28/20 [Vitamin D3] Losartan [Cozaar] 5 mg PO QDAY 08/01/20 08/01/20 07/28/20 Metoprolol [Lopressor TAB] 50 mg PO BID 08/01/20 08/01/20 07/28/20 Previous Rx's Medication Instructions Recorded Last Taken Type AtorvaSTATin [Lipitor] 40 mg PO QHS tablet 03/26/20 07/27/20 Rx Allergies Allergy/AdvReac Type Severity Reaction Status Date / Time No Known Allergies Allergy Verified 02/11/19 14:38 ED Review of Systems ROS: Stated complaint: NOSE BLEED Other details as noted in HPI Comment: All other systems reviewed and negative Constitutional: denies: chills, fever ENT: epistaxis Respiratory: denies: cough, shortness of breath, wheezing Cardiovascular: denies: chest pain, palpitations Endocrine: no symptoms reported Gastrointestinal: denies: abdominal pain, nausea, diarrhea, constipation, hematemesis, melena, hematochezia Genitourinary: denies: urgency, dysuria, frequency, hematuria, discharge, testicular pain, testicular mass Musculoskeletal: denies: back pain, joint swelling, arthralgia, myalgia Skin: denies: rash, lesions, change in color, change in hair/nails, pruritus Neurological: denies: headache, weakness, numbness, paresthesias, confusion, abnormal gait, vertigo Psychiatric: denies: anxiety, depression, auditory hallucinations, visual hallucinations, homicidal thoughts, suicidal thoughts Hematological/Lymphatic: denies: easy bleeding, easy bruising, swollen glands ED Past Medical Hx - Past Medical History Hx Hypertension: Yes Hx Congestive Heart Failure: No Hx Diabetes: No Hx Psychiatric Treatment: Yes (PTSD) Hx Asthma: No Hx COPD: Yes - Social History Smoking Status: Current Every Day Smoker - Medications Home Medications: Home Medications Medication Instructions Recorded Confirmed Last Taken Type AtorvaSTATin [Lipitor] 40 mg PO QHS tablet 03/26/20 08/01/20 07/27/20 Rx Aspirin EC [Ecotrin] 81 mg PO QDAY 08/01/20 07/28/20 History Cetirizine HCl [Cetirizine 5mg tab] 10 mg PO DAILY PRN 08/01/20 08/01/20 07/27/20 History Cholecalciferol (Vitamin D3) 25 mcg PO DAILY 08/01/20 08/01/20 07/28/20 History [Vitamin D3] Losartan [Cozaar] 5 mg PO QDAY 08/01/20 08/01/20 07/28/20 History Metoprolol [Lopressor TAB] 50 mg PO BID 08/01/20 08/01/20 07/28/20 History ED Physical Exam - General Limitations: No Limitations General appearance: alert, in no apparent distress - Head Head exam: Present: atraumatic, normocephalic, normal inspection - Eye Eye exam: Present: normal appearance, PERRL, EOMI Pupils: Present: normal accommodation - ENT ENT exam: Present: other (Mild intermittent bright red bleeding noted from the right nostril; packing noted in the left nostril with no apparent bleeding from the left nostril. There is small amount of blood in the posterior oropharynx.) - Neck Neck exam: Present: normal inspection, full ROM - Respiratory Respiratory exam: Present: normal lung sounds bilaterally. Absent: respiratory distress - Cardiovascular Cardiovascular Exam: Present: regular rate, normal rhythm, normal heart sounds - Neurological Exam Neurological exam: Present: alert, oriented X3, CN II-XII intact, normal gait - Psychiatric Psychiatric exam: Present: normal affect, normal mood - Skin Skin exam: Present: intact ED Course Vital Signs 08/12/21 08/12/21 09:02 12:25 Temperature 98.2 F 97.5 F L Pulse Rate 98 H 97 H Respiratory 18 16 Rate Blood Pressure 138/99 129/80 [Right] O2 Sat by Pulse 97 Oximetry ED Medical Decision Making - Medical Decision Making Offered to do the nasal packing to the right nare, but patient did not want to have a second Rhino Rocket placeed. Afrin spray use. After about 2 to 3 sprays, bleeding stopped. Patient stated that he rather use Afrin spray then have a second Rhino Rocket placed. Patient did blow his nose when he got home this morning which could've triggered the bleed and I informed him that he should no longer blow his nose. No nasal picking. And also he admits to alcohol intake every day and I did recommend decreasing his amount of alcohol intake as this could be contributing to the nosebleed. Blood pressure this morning is better. He is currently awake alert and oriented x3. He Is not toxic or ill-appearing. He is not in any significant distress. Patient expressed understanding agree with plan. Patient stable at time of discharge. Critical care attestation.: If time is entered above; I have spent that time in minutes in the direct care of this critically ill patient, excluding procedure time. ED Disposition Clinical Impression: Epistaxis Disposition: 01 HOME / SELF CARE / HOMELESS Is pt being admited?: No Does the pt Need Aspirin: No Condition: Stable Instructions: Nosebleed, [id number] Additional Instructions: Do not blow your nose or pick at your nose. Use the afrin, 1 spray twice per day as needed for bleed but no more than 3 days. Return in 2-3 days for removal of left nasal packing or to follow-up with ENT listed in discharge instructions for removal of the packing as well. I do recommend that you try to slow down on the alcohol intake as this could also be contributing to the bleed. Follow-up with your PCP. Return if worse. [facility]errals: [facility]Other[facility] - 3-5 Days ROSARIO VELARDE MD [Staff Physician] - 3-5 Days Time of Disposition: 11:54
[2021-08-12] MEDS ORDERED: OXYMETAZOLINE 0.05% NASAL SPRAY NS ONE (09:21)
[2021-08-12] MEDS ORDERED: ACETAMINOPHEN 325 MG TAB PO ONE (09:33)
[2021-08-12 12:27] VITALS: BP 129/80
== END 2021-08-12 12:27 | disposition home or self-care (01) ==
LOC: ED 08:58
DX: R04.0 Epistaxis (principal)
CPT/HCPCS: 99282

== ENCOUNTER 2021-08-14 13:14 | Emergency (ER) | payer OTHER ==
[2021-08-14 16:23] VITALS: BP 122/79
--- NOTE | 2021-08-14 16:59 | Emergency Department Report ---
ED ENT HPI - General Chief complaint: Recheck/Abnormal Lab/Rx Stated complaint: PACKING REMOVED Time Seen by Provider: 08/14/21 15:12 Source: patient Mode of arrival: Ambulatory Limitations: No Limitations - History of Present Illness Initial comments: 50-year-old -Maced[place] male presents to the emergency room requesting to have his nasal packing removed. Patient reports this was packed 2 days ago here in the emergency room. Patient complains that is very uncomfortable. Patient denies any history of nosebleeds. Does report a history of hypertension and states he is compliant with his medications. He does admit that the swelling has improved. Patient denies any headache no shortness of breath. MD complaint: epistaxis Onset/Timin -: days(s) Location: nose Severity: mild Quality: aching Consistency: intermittent Improves with: none Worsens with: none Associated Symptoms: denies: fever, cough, gum swelling, toothache, sore throat, tinnitus, hearing loss, discharge from ear, rhinorrhea - Related Data Home Medications Medication Instructions Recorded Confirmed Last Taken Aspirin EC [Ecotrin] 81 mg PO QDAY 08/01/20 08/14/21 07/28/20 Cetirizine HCl [Cetirizine 5mg tab] 10 mg PO DAILY PRN 08/01/20 08/14/21 07/27/20 Cholecalciferol (Vitamin D3) 25 mcg PO DAILY 08/01/20 08/14/21 07/28/20 [Vitamin D3] Losartan [Cozaar] 5 mg PO QDAY 08/01/20 08/14/21 07/28/20 Metoprolol [Lopressor TAB] 50 mg PO BID 08/01/20 08/14/21 07/28/20 Previous Rx's Medication Instructions Recorded Last Taken Type AtorvaSTATin [Lipitor] 40 mg PO QHS tablet 03/26/20 07/27/20 Rx Allergies Allergy/AdvReac Type Severity Reaction Status Date / Time No Known Allergies Allergy Verified 08/14/21 13:21 ED Dental HPI - General Chief complaint: Recheck/Abnormal Lab/Rx Stated complaint: PACKING REMOVED Time Seen by Provider: 08/14/21 15:12 Source: patient Mode of arrival: Ambulatory Limitations: No Limitations - Related Data Home Medications Medication Instructions Recorded Confirmed Last Taken Aspirin EC [Ecotrin] 81 mg PO QDAY 08/01/20 08/14/2120 Cetirizine HCl [Cetirizine 5mg tab] 10 mg PO DAILY PRN 08/01/20 08/14/21 07/27/20 Cholecalciferol (Vitamin D3) 25 mcg PO DAILY 08/01/20 08/14/21 07/28/20 [Vitamin D3] Losartan [Cozaar] 5 mg PO QDAY 08/01/20 08/14/21 07/28/20 Metoprolol [Lopressor TAB] 50 mg PO BID 08/01/20 08/14/21 07/28/20 Previous Rx's Medication Instructions Recorded Last Taken Type AtorvaSTATin [Lipitor] 40 mg PO QHS tablet 03/26/20 07/27/20 Rx Allergies Allergy/AdvReac Type Severity Reaction Status Date / Time No Known Allergies Allergy Verified 08/14/21 13:21 ED Review of Systems ROS: Stated complaint: PACKING REMOVED Other details as noted in HPI Comment: All other systems reviewed and negative ED Past Medical Hx - Past Medical History Hx Hypertension: Yes Hx Congestive Heart Failure: No Hx Diabetes: No Hx Psychiatric Treatment: Yes (PTSD) Hx Asthma: No Hx COPD: Yes - Social History Smoking Status: Never Smoker Substance Use Type: None - Medications Home Medications: Home Medications Medication Instructions Recorded Confirmed Last Taken Type AtorvaSTATin [Lipitor] 40 mg PO QHS tablet 03/26/20 08/14/21 07/27/20 Rx Aspirin EC [Ecotrin] 81 mg PO QDAY 08/01/20 08/14/21 07/28/20 History Cetirizine HCl [Cetirizine 5mg tab] 10 mg PO DAILY PRN 08/01/20 08/14/21 07/27/20 History Cholecalciferol (Vitamin D3) 25 mcg PO DAILY 08/01/20 08/14/21 07/28/20 History [Vitamin D3] Losartan [Cozaar] 5 mg PO QDAY 08/01/20 08/14/21 07/28/20 History Metoprolol [Lopressor TAB] 50 mg PO BID 08/01/20 08/14/21 07/28/20 History ED Physical Exam - General Limitations: No Limitations General appearance: alert, in no apparent distress - Head Head exam: Present: atraumatic, normocephalic - Eye Eye exam: Present: normal appearance - Expanded ENT Exam Expanded Ear exam: Present: other (Left nostril Rhino Rocket removed. Still having some bleeding. Tender to touch of the left nostril) - Respiratory Respiratory exam: Absent: respiratory distress, accessory muscle use - Cardiovascular Cardiovascular Exam: Present: regular rate - Extremities Exam Extremities exam: Present: normal inspection - Back Exam Back exam: Present: normal inspection - Neurological Exam Neurological exam: Present: alert, oriented X3, normal gait - Psychiatric Psychiatric exam: Present: normal affect, normal mood - Skin Skin exam: Present: warm, dry, intact, normal color. Absent: rash ED Course Vital Signs 08/14/21 08/14/21 13:22 16:21 Temperature 98.5 F 98.2 F Pulse Rate 98 H 88 Respiratory 20 16 Rate Blood Pressure 115/63 Blood Pressure 122/79 [Right] O2 Sat by Pulse 98 99 Oximetry - Procedure Description Procedures done: Rhino Rocket placed in left nostril. Patient tolerated well. ED Medical Decision Making - Medical Decision Making 50-year-old -Maced[place] male presents to the emergency room requesting to have his nasal packing removed. Patient reports this was packed 2 days ago here in the emergency room. Patient complains that is very uncomfortable. Patient denies any history of nosebleeds. Does report a history of hypertension and states he is compliant with his medications. He does admit that the swelling has improved. Patient denies any headache no shortness of breath. Patient still has nosebleed in the left nostril. We will place a Rhino Rocket to left nostril and have patient return back in 3 days to the emergency room or ear nose and throat for removal Critical care attestation.: If time is entered above; I have spent that time in minutes in the direct care of this critically ill patient, excluding procedure time. ED Disposition Clinical Impression: Acute anterior epistaxis Disposition: HOME / SELF CARE / HOMELESS Is pt being admited?: No Does the pt Need Aspirin: No Condition: Stable Instructions: Nosebleed, [id number] Additional Instructions: Please return back to the emergency room in 48 hours to 72 hours for removal of nasal packing. Is very important you follow-up with the biology research assistant I have listed 1 below for your convenience. Tylenol or ibuprofen. You can use your Afrin. Referrals: PRIMARY CARE, [Primary Care Provider] - 3-5 Days MAGGIE CATHERINE MD [Referring] - 3-5 Days Forms: Work/School Release Form(ED) Time of Disposition: 17:10
== END 2021-08-14 17:19 | disposition home or self-care (01) ==
LOC: ED 13:14
DX: R04.0 Epistaxis (principal); I10 Essential (primary) hypertension
CPT/HCPCS: 99282